=== PATIENT | male | born 1995 | race Caucasian/White ===

== ENCOUNTER 2017-05-18 21:40 | Emergency (ER) | payer MEDICAID ==
[2017-05-18 21:53] VITALS: BP 134/74
[2017-05-18] MEDS ORDERED: Ibuprofen 800 MG Tab PO ONE (22:35)
--- NOTE | 2017-05-18 22:41 | EDM.PDOC ---
ED HPI GENERAL MEDICAL PROBLEM - General Chief Complaint: ENT Problem Stated Complaint: TOOTHACHE Time Seen by Provider: 05/18/17 22:20 Source of Information: Reports: Patient History Limitations: Reports: No Limitations - History of Present Illness INITIAL COMMENTS - FREE TEXT/NARRATIVE: Osmar presents tonight with complaints of dental pain to the left upper and lower jaw for 24 or more hours. He has tried use of oragel and excedrin. He reports difficulty eating and drinking due to the pain as well as intolerance to cold and hot foods/beverages. [place] checked, no fills of controlled substances past 12 months. - Related Data Allergies Allergy/AdvReac Type Severity Reaction Status Date / Time No Known Allergies Allergy Verified 05/18/17 21:54 Home Meds: Home Meds Diclofenac Sodium [IMW: Diclofenac Sodium] 05/18/17 [History] Social & Family History - Tobacco Use Smoking Status *Q: Current Every Day Smoker Years of Tobacco use: 5 Packs/Tins Daily: 1 ED ROS ENT - Review of Systems Review Of Systems: See Below Constitutional: Reports: Fever, Chills. Denies: Malaise, Weakness HEENT: Reports: Dental Pain, Ear Pain. Denies: Ear Discharge, Eye Pain, Throat Pain, Throat Swelling Respiratory: Reports: No Symptoms Cardiovascular: Reports: No Symptoms Endocrine: Reports: No Symptoms GI/Abdominal: Reports: Nausea : Reports: No Symptoms Musculoskeletal: Reports: No Symptoms Skin: Reports: No Symptoms Neurological: Reports: No Symptoms Psychiatric: Reports: No Symptoms Hematologic/Lymphatic: Reports: No Symptoms Immunologic: Reports: No Symptoms ED EXAM, ENT - Physical Exam Exam: See Below Text/Narrative:: Osmar is an alert, oriented and pleasant 21 year old male presenting with left upper and lower jaw dental pain. Multiple dental caries noted, fillings, pain, edema and tenderness noted along #12 through and including #21. Mild facial edema noted to lower jaw. Exam Limited By: No Limitations General Appearance: Alert, WD/WN, Mild Distress Eye Exam: Bilateral Eye: EOMI, Normal Inspection, PERRL Ears: Normal External Exam, Normal Canal, Hearing Grossly Normal, Normal TMs Nose: Normal Inspection, Normal Mucousa, No Blood Mouth/Throat: Dental Pain, Dental Tenderness, Gum Swelling, Other (Multiple dental caries. Edema, tenderness to #12 through #21. ) Head: Atraumatic, Normocephalic Neck: Normal Inspection, Supple, Non-Tender, Full Range of Motion. No: Lymphadenopathy (R), Lymphadenopathy (L) Respiratory/Chest: No Respiratory Distress, Lungs Clear, Normal Breath Sounds, No Accessory Muscle Use, Chest Non-Tender Cardiovascular: Normal Peripheral Pulses, Regular Rate, Rhythm, No Edema, No Murmur, No Rub Back: Normal Inspection, Full Range of Motion. No: CVA Tenderness (R), CVA Tenderness (L) Extremities: Normal Inspection, Normal Range of Motion, Non-Tender, No Pedal Edema, Normal Capillary Refill Neurological: Alert, Oriented, Normal Cognition, No Motor/Sensory Deficits Psychiatric: Normal Affect, Normal Mood Skin: Warm, Dry, Intact, Normal Color, No Rash Lymphatic: No Adenopathy Course - Vital Signs Last Recorded V/S: Last Vital Signs Temp 36.8 C 05/18/17 22:00 Pulse 82 05/18/17 22:00 Resp 14 05/18/17 22:00 BP 134/74 05/18/17 22:00 Pulse Ox 98 05/18/17 22:00 - Orders/Labs/Meds Meds: Medications Discontinued Medications Generic Name Dose Route Start Last Admin Trade Name Freq PRN Reason Stop Dose Admin Ibuprofen 800 mg 05/18/17 22:35 05/18/17 22:43 Motrin PO 05/18/17 22:36 800 mg ONETIME ONE Administration Departure - Departure Time of Disposition: 22:41 Disposition: Home, Self-Care 01 Condition: Good Clinical Impression: Dental caries extending into dentin, Dental infection - Discharge Information Instructions: Dental Abscess, [id number] Referrals: PCP,None [Primary Care Provider] - Forms: ED Department Discharge Additional Instructions: You are suffering from dental pain and infection related to dental caries extending into the dentin. It is best to take ibuprofen 800mg by mouth with food and a full glass of water for pain. Take Penicillin 500mg tablet by mouth four times a day for 7 days. It will take 24 to 48 hours for the antibiotic to help decrease pain. For break through pain you can take hydrocodone 5/325mg, one tablet by mouth twice a day. Instymed for hydrocodone 5/325mg #6 tabs. This will be enough pain medication until you see dental on Friday. Follow up with your [facility] Dental referral as directed Sunday May 21, 2017 at 0815. - Assessment/Plan Assessment:: Dental pain Dental caries extending into the dentin Dental infection Plan: Dental pain and infection related to dental caries extending into the dentin. It is best to take ibuprofen 800mg by mouth with food and a full glass of water for pain. Take Penicillin 500mg tablet by mouth four times a day for 7 days. It will take 24 to 48 hours for the antibiotic to help decrease pain. For break through pain patient can take hydrocodone 5/325mg, one tablet by mouth twice a day. Instymed for hydrocodone 5/325mg #6 tabs. This will be enough pain medication until he sees dental on Friday. Follow up with your [facility] Dental referral as directed Sunday May 21, 2017 at 0815.
== END 2017-05-18 22:56 | disposition home or self-care (01) ==
LOC: JP.ED 21:40
DX: K04.7 Periapical abscess without sinus (principal); K02.9 Dental caries, unspecified; F17.210 Nicotine dependence, cigarettes, uncomplicated
CPT/HCPCS: 99283; A9270